=== PATIENT | male | born 1995 | race African-American/Black ===

== ENCOUNTER 2023-01-11 09:01 | Outpatient (AMB) | payer OTHER, SELFPAY ==
--- NOTE | 2023-01-11 09:02 | MHC.OFFWIV ---
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 Patient complaining of cerumen impaction in both ears. He states this has happened to him in the past. He denies any otalgia. He states that he feels as though his hearing is slightly decreased. He is otherwise feeling well. PFS Social History Patient Tobacco Use Status: Never used Tobacco Review of Systems Const All systems reviewed & are unremarkable except as noted in HPI and below Reports no additional complaints Eyes Reports no additional complaints ENT Reports no additional complaints Card Reports no additional complaints Resp Reports no additional complaints GI Reports no additional complaints Reports no additional complaints Musc Reports no additional complaints Skin/Breast Reports system reviewed and no additional complaints, except as documented Neuro Reports no additional complaints Psych Reports no additional complaints Endo Reports no additional complaints Teofilo/Lymph Reports no additional complaints Aller/Immun Reports no additional complaints Physical Exam Const General: cooperative, healthy appearing, no acute distress and well developed Orientation/consciousness: patient oriented x3 HEENT Other: Cerumen impaction bilaterally. Head: Yes normal to inspection Ears: hearing grossly normal bilaterally General nose exam: Normal external nose present Face and sinus: Yes normal facial exam Mouth: Normal oral and palatal mucosa present Eyes General: appearance normal, both eyes and all related structures Pupils: Equal, round and reactive pupils present EOM: EOMs intact bilaterally Resp Effort & Inspection: normal respiratory effort and no respiratory distress Auscultation: clear to auscultation bilaterally Cardio Rate: regular rate Rhythm: regular rhythm Heart sounds: no gallops, no murmurs and no rubs Peripheral pulses: Peripheral pulses 2+ throughout GI Inspection: No distended Palpation (GI): Soft to palpation and nontender Auscultation: normal bowel sounds Skin General skin exam: no rashes or lesions noted Neuro General: patient oriented x3 Cranial nerves: Yes CN's II-XII intact bilaterally and Yes Equal, round and reactive pupils present Gait exam (Neuro): Normal gait present Motor exam (neuro): 5/5 motor strength present throughout Extrem General: Yes normal to inspection, Yes full ROM and Yes no clubbing, cyanosis or edema Psych Appearance: grossly normal Mental Status: mental status grossly normal Office Procedures Cerumen Removal From which ear canal was the cerumen removed: bilateral Removal: irrigation Notes: patient tolerated procedure well [id number] Irrigation/Lavage Assessment & Plan Assessment & Plan (1) Impacted cerumen of both ears: Code(s): H61.23 - Impacted cerumen, bilateral Plan: This is a 27-year-old male who was presenting to the office today complaining of cerumen impaction of both ears. On physical examination, patient has cerumen impaction bilaterally. Cerumen removal was performed using irrigation. On re-examination, his external auditory canals are clear without cerumen impaction, erythema, or edema and his tympanic membranes are normal bilaterally without erythema, edema, or bulging. Patient's vital signs are stable. He is otherwise feeling well and he is overall nontoxic appearing. Patient was discharged home. Patient instructed to follow-up here for persistent/worsening symptoms. Patient verbalizes understanding and he is agreement with the plan. Coding Level of Care Code New Pt Level 3 (24750) Diagnoses Impacted cerumen of both ears H61.23 CPT Codes Office Procedure - CPT: 56603-Llg Irrigation/Lavage ([id number])
[2023-01-11 09:07] VITALS: BP 130/80; PULSE 78; TEMP 36.6; O2SAT 98; BMI 25.5
== END 2023-01-11 09:49 | disposition home or self-care (01) ==
PROVIDERS: PCP Nurse Practitioner Family; Visit Provider Physician Assistant Medical
DX: H61.23 Impacted cerumen, bilateral (principal)
CPT/HCPCS: 69209; 99051; 99203

== ENCOUNTER 2023-02-19 15:21 | Outpatient (AMB) | payer OTHER, SELFPAY ==
[2023-02-19 15:26] VITALS: BP 140/86; PULSE 86; O2SAT 99; BMI 25.5
--- NOTE | 2023-02-19 15:26 | A.OFFPC_ITS ---
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 Previous PCP at [facility], [place], last visit last year, patient reports that he is not due for physical exam yet, he will call for an appointment. Medical history significant for hidradenitis suppurative - was seen by Dermatology in the past- was on antibiotic cream-in remission currently. Patient also reports hard time staying asleep, no problems falling asleep, he also reports when he sleeps he talks in sleep, sits up, move his hands, and snore - this was reported by patient's partner. Patient also reports feeling tired after waking up. He did try melatonin with minimal improvement although this makes him very drowsy during the day. Patient denies shortness of breath or chest pain. Patient will call for an eye exam. 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 1. Little interest or pleasure in doing things: not at all 2. Feeling down, depressed, or hopeless: not at all 3. Trouble falling or staying asleep, or sleeping too much: not at all 4. Feeling tired or having little energy: not at all 5. Poor appetite or overeating: not at all 6. Feeling bad about yourself - or that you are a failure or have let yourself or your family down: not at all 7. Trouble concentrating on things, such as reading the newspaper or watching television: not at all 8. Moving or speaking so slowly that other people could have noticed. Or the opposite - being so fidgety or restless that you have been moving around a lot more than usual: not at all 9. Thoughts that you would be better off or of hurting yourself in some way: not at all Total score: 0 Depression Screening Interpretation: Negative Depression Screening Done: Yes 32559 - PHQ-9 Billing: Yes Source: Developed by Drs. Pablo Dalal, Dipti Denny, Dontae Carballo and colleagues, with an educational marjorie from [employer]. Thrive Questionnaire Date Thrive assessed: 02/19/23 I am a: Patient What is your living situation today?: I have a steady place to live Within the past 12 months, did the food you bought not last and you didn't have the money to get more?: Never true Within the past 12 months, did you worry whether your food would run out before you got money to buy more?: Never true Do you have trouble paying for medicines?: No Do you have trouble getting transportation to medical appointments?: No Do you have trouble paying your heating and electricity bill?: No Do you have trouble taking care of your child, family member or friend?: No Do you have trouble with day-to-day activities such as bathing, preparing meals, shopping, managing finances, etc.?: No Are you currently unemployed and looking for a job?: No Are you interested in more education?: No Currently or been in a relationship where the following occur: no concerns reported AUDIT C Alcohol Use Questionnaire (AUDIT-C) 1. How often do you have a drink containing alcohol?: Never 2. How many drinks containing alcohol do you have on a typical day when you are drinking?: 1 or 2 (0) 3. How often do you have six or more drinks on one occasion?: Never Total Score: 0 Score Reviewed/Action Taken: No EMMETT-7 AMB Questionnaire EMMETT-7 Date EMMETT - 7 assessed: 02/19/23 Feeling nervous, anxious, or on edge: 1 = Several days Not being able to stop or control worryin = Not at all Worrying too much about different things: 0 = Not at all Trouble relaxin = Not at all Being so restless that it is hard to sit still: 0 = Not at all Becoming easily annoyed or irritable: 0 = Not at all Feeling afraid as if something awful might happen: 0 = Not at all Total EMMETT-7 score (0-4 normal; 5-9 mild; 10-14 moderate; 15-21 severe): 1 Source: Developed by Drs. Pablo Dalal, Dipti Denny, Dontae Carballo and colleagues, with an educational marjorie from [employer]. EMMETT-7 Assessment Billing EMMETT-7 Assessment Tool: EMMETT-7 Assessment 54272 Review of Systems Const Denies body aches, Denies chills, Reports daytime sleepiness, Reports difficulty sleeping, Reports fatigue, Denies fever(s) and Denies headache(s) Eyes Denies change in vision ENT Denies dizziness, Denies otalgia, Denies headache(s), Denies nasal discharge, Denies sinus pain and Denies sore throat Card Denies chest pain, Denies edema, Denies lightheadedness and Denies dyspnea Resp Denies cough, Denies dyspnea and Denies wheezing GI Denies abdominal pain, Denies constipation, Denies diarrhea, Denies nausea and Denies vomiting Denies dysuria Musc Denies myalgias Skin/Breast Denies rash Neuro Denies dizziness and Denies headache(s) Endo Reports fatigue Aller/Immun Denies wheezing Physical exam (Primary Care) Vital Signs: Last Vital Signs Pulse 86 02/19/23 15:26 BP 132/86 02/19/23 16:03 Pulse Ox 99 02/19/23 15:26 Oxygen Delivery Method Room Air 02/19/23 15:26 BMI result Body Mass Index 25.5 Tobacco/Smoking Status: Tobacco use Status Tobacco use date assessed 02/19/23 02/19/23 15:27 Patient Tobacco Use Status Never used Tobacco 02/19/23 15:27 PHQ-9: PHQ-9 Score PHQ-9: Total score 0 02/19/23 15:45 Depression Screening Interpretation: Negative Thrive Assessment: Date of Thrive Assessment Date Thrive assessed 02/19/23 02/19/23 15:27 Currently or been in a relationship where the following occur: no concerns reported Const General: cooperative and no acute distress Orientation/consciousness: patient oriented x3 HENMT Head: Yes normocephalic and Yes atraumatic Ears: TM's normal bilaterally Face and sinus: Yes sinuses nontender Mouth: oropharynx normal and moist mucous membranes Throat: Yes posterior oropharynx normal Eyes General: appearance normal, both eyes and all related structures Pupils: Equal, round and reactive pupils present EOM: EOMs intact bilaterally Neck Neck: Yes normal visual inspection, Yes full ROM and Yes no lymphadenopathy Thyroid: Thyroid normal Resp Effort & Inspection: normal respiratory effort and able to speak in complete sentences Auscultation: clear to auscultation bilaterally, no crackles, no rales, no rhonchi and no wheezes Cardio Rate: regular rate Rhythm: regular rhythm Heart sounds: S1 normal heart sound present, S2 normal heart sound present and no murmurs GI Palpation (GI): Soft to palpation, not firm, nontender, no guarding, not rigid and no hepatosplenomegaly Auscultation: normal bowel sounds General: No CVA tenderness Back/Spine/Pelvis Back: No CVA tenderness Skin General skin exam: no rashes or lesions noted Neuro General: patient oriented x3 Cranial nerves: Yes Equal, round and reactive pupils present Gait exam (Neuro): Normal gait present Extrem General: Yes full ROM and No edema Assessment and Plan Assessment & Plan (1) Hypersomnia: Code(s): G47.10 - Hypersomnia, unspecified Plan: Will order sleep study (2) Insomnia: Code(s): G47.00 - Insomnia, unspecified Plan: Reinforced sleep hygiene Start hydroxyzine 10 mg at bedtime p.r.n.-educated about drowsiness (3) Encounter to establish care: Code(s): Z76.89 - Persons encountering health services in other specified circumstances Plan: Patient presents to establish care, blood work ordered Patient will call for physical exam, not due yet per patient (4) Overweight (BMI 25.0-29.9): Code(s): E66.3 - Overweight Plan: Healthy food choices and exercise as tolerated (5) Hidradenitis suppurativa: Comment: in groin and cheeks (was on topical ABX in the past) Code(s): L73.2 - Hidradenitis suppurativa Plan: Patient denies concerns at this time Orders: Orders Vitamin B12 and Folate Today Z76.89 - Persons encountering health services in other specified circumstances TSH reflex Free T4 Today Z76.89 - Persons encountering health services in other specified circumstances Comprehensive Met. Panel Today Z76.89 - Persons encountering health services in other specified circumstances Vitamin D 25-OH Total Today Z76.89 - Persons encountering health services in other specified circumstances Complete Blood Count Auto Diff Today Z76.89 - Persons encountering health services in other specified circumstances RT home sleep study Today G47.10 - Hypersomnia, unspecified Medications: New hydroxyzine HCl 10 mg PO BEDTIME PRN 14 tabs 0RF insomnia G47.00 - Insomnia, unspecified Coding Level of Care Code New Pt Level 3 (96259) Diagnoses Hypersomnia G47.10 Insomnia G47.00 Encounter to establish care Z76.89 Overweight (BMI 25.0-29.9) E66.3 Hidradenitis suppurativa L73.2 Additional Codes EMMETT-7 Assessment Billing - EMMETT-7 Assessment Tool: EMMETT-7 Assessment 77728 ([id number])
[2023-02-19 16:03] VITALS: BP 132/86
== END 2023-02-19 16:08 | disposition home or self-care (01) ==
PROVIDERS: PCP Nurse Practitioner Family; Visit Provider Nurse Practitioner Family
DX: G47.10 Hypersomnia, unspecified (principal); G47.00 Insomnia, unspecified; Z76.89 Persons encountering health services in other specified circumstances; E66.3 Overweight; L73.2 Hidradenitis suppurativa
CPT/HCPCS: 99203

== ENCOUNTER 2023-03-18 15:23 | Outpatient (REF) | payer OTHER, SELFPAY ==
[2023-03-18 15:41] LABS: MANUAL DIFF FLAG NO
[2023-03-18 15:51] LABS: Basophils Percent Auto 0.4 % (0-2); Eosinophils Absolute Auto 0.1 X10*3/uL (0.0-0.4); Eosinophils Percent Auto 2.3 % (0-4); Hematocrit 39.3 % (42.0-52.0); Hemoglobin 13.3 g/dl (14.0-18.0); Imm Gran Abs Auto 0.01 X10*3/uL (0.00-0.03); Imm Gran Pct Auto 0.2 % (0.0-0.4); Lymphocytes Absolute Auto 1.9 X10*3/uL (1.2-4.9); Mean Corpuscular HGB Conc 33.8 g/dl (31.0-36.0); Mean Corpuscular Hemoglobin 28.9 pg (27.0-33.0); Mean Corpuscular Volume 85.4 fL (80.0-98.0); Mean Platelet Volume 10.2 fL (9.4-12.4); Monocytes Absolute Auto 0.3 X10*3/uL (0.1-1.2); Monocytes Percent Auto 5.6 % (2-11); Neutrophils Absolute Auto 2.5 x10*3/uL (2.0-8.3); Neutrophils Percent Auto 52.5 % (45-73); Platelet Count 157 X10*3/uL (160-400); White Blood Count 4.8 X10*3/uL (4.8-10.8)
[2023-03-18 16:20] LABS: Alanine Aminotransferase 19 U/L (0-40); Albumin Level 4.4 g/dL (3.5-5.0); Alkaline Phosphatase 64 U/L (39-117); Anion Gap 9 (12-20); Aspartate Amino Transferase 30 U/L (5-37); Bilirubin Total 1.4 mg/dL (0.0-1.0); Blood Urea Nitrogen 11 mg/dL (9-16); Calcium 9.7 mg/dL (8.4-10.2); Carbon Dioxide 31 mmol/L (22-29); Chloride 104 mmol/L (96-108); Estimated Glomerular Filt Rate > 60; Glucose Random 87 mg/dL (60-115); Potassium 3.9 mmol/L (3.3-5.1); Sodium 140 mmol/L (135-145); Total Protein 7.6 g/dL (6.5-8.0)
[2023-03-18 16:37] LABS: TSH reflex Free T4 1.47 uIU/mL (0.32-4.0); Vitamin D 25-OH Total 14.6 ng/mL (>30)
[2023-03-18 16:50] LABS: Folate 6.9 ng/mL (> or = 4.0); Vitamin B12 1682 pg/mL (200-900)
== END 2023-03-18 15:24 | disposition home or self-care (01) ==
LOC: HO.LAB 15:23
PROVIDERS: PCP Nurse Practitioner Family; Visit Provider Nurse Practitioner Family
DX: Z76.89 Persons encountering health services in other specified circumstances (principal)
CPT/HCPCS: 36415; 80053; 82306; 82607; 82746; 84443; 85025

== ENCOUNTER → 2023-04-14 11:05 | Outpatient (REF) | payer OTHER, SELFPAY | LOC: HO.SL 11:05 | PROVIDERS: PCP Nurse Practitioner Family; Visit Provider Nurse Practitioner Family | DX: G47.10 Hypersomnia, unspecified (principal); R06.83 Snoring | CPT/HCPCS: 95806 ==

== ENCOUNTER → 2023-04-14 11:15 | Outpatient (BNV) | payer OTHER, SELFPAY | PROVIDERS: PCP Nurse Practitioner Family; Visit Provider Psychiatry & Neurology Neurology | DX: G47.10 Hypersomnia, unspecified (principal); R06.83 Snoring | CPT/HCPCS: 95806 ==

== ENCOUNTER 2023-10-01 13:58 | Outpatient (AMB) | payer OTHER, SELFPAY ==
--- NOTE | 2023-10-01 14:04 | A.OFFPC_ITS ---
Vital Signs 10/01/23 14:08 Height 5 ft 10 in Weight 173 lb 6 oz BMI 24.9 BP 140/80 H Blood Pressure Location Lt brachial Position Sitting Pulse 84 Pulse Source Pulse Oximeter Pulse Oximetry (%) 99 Oxygen Delivery Method Room Air Intake Visit Reasons: Hypersomina Intake Note: Patient is here to follow up on Hypersomina. Hop Weigher Required: No Psychiatric Specialist: Not Required per policy Accompanied by: Self / Same As Patient Allergies No Known Allergies Allergy (Verified 10/01/23 14:35) Medication List - Last Reconciled 10/01/23 by Micheal Mcintyre MD cholecalciferol (vitamin D3) 50 mcg PO DAILY hydroxyzine HCl 10 mg PO BEDTIME PRN Tobacco use date assessed: 10/01/23 Dental Screening Dental Screen Date: 10/01/23 Did you have a dental visit in the last 12 months?: Yes Did you have a dental problem in the last 6 months where you did not have access to dental care?: No Was dental information given to patient?: Patient has dentist HPI Ciara HPI Details 27-year-old male presents to the office requesting an annual physical. 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 Last year, blood work showed elevated vitamin B12 and low vitamin-D. Patient was taking supplements for vitamin-D on an intermittent basis. Currently he has on no medications. Sleep patterns have also improved. 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 1. Little interest or pleasure in doing things: not at all 2. Feeling down, depressed, or hopeless: not at all 3. Trouble falling or staying asleep, or sleeping too much: not at all 4. Feeling tired or having little energy: not at all 5. Poor appetite or overeating: not at all 6. Feeling bad about yourself - or that you are a failure or have let yourself or your family down: not at all 7. Trouble concentrating on things, such as reading the newspaper or watching television: not at all 8. Moving or speaking so slowly that other people could have noticed. Or the opposite - being so fidgety or restless that you have been moving around a lot more than usual: not at all 9. Thoughts that you would be better off or of hurting yourself in some way: not at all Total score: 0 Depression Screening Interpretation: Negative Depression Screening Done: Yes Source: Developed by Drs. Pablo Dalal, Dipti Denny, Dontae Carballo and colleagues, with an educational marjorie from [employer]. Thrive Questionnaire Date Thrive assessed: 10/01/23 I am a: Patient What is your living situation today?: I have a steady place to live Within the past 12 months, did the food you bought not last and you didn't have the money to get more?: Never true Within the past 12 months, did you worry whether your food would run out before you got money to buy more?: Never true Do you have trouble paying for medicines?: No Do you have trouble getting transportation to medical appointments?: No Do you have trouble paying your heating and electricity bill?: No Do you have trouble taking care of your child, family member or friend?: No Do you have trouble with day-to-day activities such as bathing, preparing meals, shopping, managing finances, etc.?: No Are you currently unemployed and looking for a job?: No Are you interested in more education?: No Currently or been in a relationship where the following occur: no concerns reported THRIVE Score: 0 AUDIT C Alcohol Use Questionnaire (AUDIT-C) 1. How often do you have a drink containing alcohol?: Never Total Score: 0 EMMETT-7 AMB Questionnaire EMMETT-7 Date EMMETT - 7 assessed: 10/01/23 Feeling nervous, anxious, or on edge: 0 = Not at all Not being able to stop or control worryin = Not at all Worrying too much about different things: 0 = Not at all Trouble relaxin = Not at all Being so restless that it is hard to sit still: 0 = Not at all Becoming easily annoyed or irritable: 0 = Not at all Feeling afraid as if something awful might happen: 0 = Not at all Total EMMETT-7 score (0-4 normal; 5-9 mild; 10-14 moderate; 15-21 severe): 0 Source: Developed by Drs. Pablo Dalal, Dipti Denny, Dontae Carballo and colleagues, with an educational marjorie from [employer]. Physical exam (Primary Care) Vital Signs: Last Vital Signs Pulse 84 10/01/23 14:08 BP 140/80 H 10/01/23 14:08 Pulse Ox 99 10/01/23 14:08 Oxygen Delivery Method Room Air 10/01/23 14:08 BMI result Body Mass Index 24.9 Tobacco/Smoking Status: Tobacco use Status Tobacco use date assessed 10/01/23 10/01/23 14:07 Patient Tobacco Use Status Never used Tobacco 10/01/23 14:07 e-Cigarette/Vaping Use Never Used 10/01/23 14:13 PHQ-9: PHQ-9 Score PHQ-9: Total score 0 10/01/23 14:38 Depression Screening Interpretation: Negative Thrive Assessment: Date of Thrive Assessment Date Thrive assessed 10/01/23 10/01/23 14:07 Currently or been in a relationship where the following occur: no concerns reported Assessment and Plan Assessment & Plan (1) Low vitamin D level: Code(s): R79.89 - Other specified abnormal findings of blood chemistry (2) Anemia: Code(s): D64.9 - Anemia, unspecified (3) Annual physical exam: Code(s): Z00.00 - Encounter for general adult medical examination without abnormal findings Plan: BW ordered. Will call with results Orders: Orders Basic Metabolic Panel Today D64.9 - Anemia, unspecified, R79.89 - Other specified abnormal findings of blood chemistry Liver Panel Today D64.9 - Anemia, unspecified, R79.89 - Other specified abnormal findings of blood chemistry Vitamin D 25-OH (D2 and D3) Today D64.9 - Anemia, unspecified, R79.89 - Other specified abnormal findings of blood chemistry Complete Blood Count no Diff Today D64.9 - Anemia, unspecified, R79.89 - Other specified abnormal findings of blood chemistry Lipid Panel Today D64.9 - Anemia, unspecified, R79.89 - Other specified abnormal findings of blood chemistry UA and rflx microscopic Today D64.9 - Anemia, unspecified, R79.89 - Other specified abnormal findings of blood chemistry Vitamin B12 and Folate Today D64.9 - Anemia, unspecified, R79.89 - Other specified abnormal findings of blood chemistry Medications: Refilled cholecalciferol (vitamin D3) 50 mcg PO DAILY 90 tabs 0RF R79.89 - Other specified abnormal findings of blood chemistry hydroxyzine HCl 10 mg PO BEDTIME PRN 14 tabs 0RF insomnia G47.00 - Insomnia, unspecified Coding Level of Care Code Est Pt Prev Care 18-39y(64709) Diagnoses Low vitamin D level R79.89 Anemia D64.9 Annual physical exam Z00.00
[2023-10-01 14:08] VITALS: BP 140/80; PULSE 84; O2SAT 99; BMI 24.9
== END 2023-10-01 16:10 | disposition home or self-care (01) ==
PROVIDERS: PCP Internal Medicine; Visit Provider Internal Medicine
DX: R79.89 Other specified abnormal findings of blood chemistry (principal); D64.9 Anemia, unspecified; Z00.00 Encounter for general adult medical examination without abnormal findings
CPT/HCPCS: 99395

== ENCOUNTER 2023-10-03 08:45 | Outpatient (REF) | payer OTHER, SELFPAY ==
[2023-10-03 10:36] LABS: Appearance Urine Clear; Color Urine Yellow; Glucose Urine UA Negative (Negative); Leukocyte Esterase Urine Negative (Negative); Nitrite Urine Negative (Negative); Specific Gravity - Urine 1.015 (1.005-1.025); Urine Blood Negative (Negative); Urine Ketones Negative (Negative); Urine Protein Negative (Neg-Trace)
[2023-10-03 10:46] LABS: Hematocrit 41.8 % (42.0-52.0); Hemoglobin 14.6 g/dl (14.0-18.0); Mean Corpuscular HGB Conc 34.9 g/dl (31.0-36.0); Mean Corpuscular Hemoglobin 29.9 pg (27.0-33.0); Mean Corpuscular Volume 85.5 fL (80.0-98.0); Mean Platelet Volume 10.9 fL (9.4-12.4); Platelet Count 172 X10*3/uL (160-400); Red Blood Count 4.89 X10*6/uL (4.60-5.80); Red Cell Distribution Width 11.8 % (11.0-16.0); White Blood Count 3.5 X10*3/uL (4.8-10.8)
[2023-10-03 11:02] LABS: Alanine Aminotransferase 15 U/L (0-40); Albumin Level 4.4 g/dL (3.5-5.0); Alkaline Phosphatase 54 U/L (39-117); Anion Gap 8 (12-20); Aspartate Amino Transferase 30 U/L (5-37); Bilirubin Direct 0.4 mg/dL (0.0-0.5); Bilirubin Total 1.5 mg/dL (0.0-1.0); Blood Urea Nitrogen 12 mg/dL (9-16); Calcium 9.7 mg/dL (8.4-10.2); Carbon Dioxide 29 mmol/L (22-29); Chloride 105 mmol/L (96-108); Cholesterol 170 mg/dL (<200); Estimated Glomerular Filt Rate > 60; Glucose Random 98 mg/dL (60-115); HDL Cholesterol 64 mg/dL (>40); LDL Cholesterol Calculated 95 mg/dL (<100); Sodium 138 mmol/L (135-145); Total Protein 7.7 g/dL (6.5-8.0); Triglycerides 59 mg/dL (<150)
[2023-10-03 11:36] LABS: Folate 7.4 ng/mL (> or = 4.0)
[2023-10-03 11:43] LABS: Vitamin B12 1653 pg/mL (200-900)
[2023-10-09 12:08] LABS: Vitamin D 25-OH, D2 <4 ng/mL; Vitamin D 25-OH, D3 28 ng/mL; Vitamin D 25-OH, Total 28 ng/mL (30-100)
== END 2023-10-03 08:46 | disposition home or self-care (01) ==
LOC: HO.HMGCLDS 08:45
PROVIDERS: PCP Internal Medicine; Visit Provider Internal Medicine
DX: R79.89 Other specified abnormal findings of blood chemistry (principal); D64.9 Anemia, unspecified
CPT/HCPCS: 36415; 80048; 80061; 80076; 81003; 82306; 82607; 82746; 85027